=== PATIENT | female | born 1970 | race Caucasian/White ===

== ENCOUNTER 2018-12-20 14:20 | Inpatient (IN) | payer MEDICAID ==
[~2018-12-20] VITALS: Ht 162.6 cm; Wt 60.3 kg
[~2018-12-20 14:20] MED LIST: CLON0.5T12 PO; ESCI20TA PO
[2018-12-20] MEDS ORDERED: FLUO-191 PO (18:08)
[2018-12-20] MEDS ORDERED: TRAZ150 PO (18:08)
[2018-12-20] MEDS ORDERED: PRAZ1 PO (18:08)
[2018-12-20] MEDS ORDERED: MACR100 PO (18:15)
[2018-12-20] MEDS ORDERED: VIT1TABL82 PO (18:17)
[2018-12-20] MEDS ORDERED: THIA100T67 PO (18:17)
[2018-12-20] MEDS ORDERED: LORazepam 2 MG TABLET PO PRN (18:30)
[2018-12-20] MEDS ORDERED: HALOPERIDOL 5 MG TABLET PO PRN (18:30)
[2018-12-20] MEDS ORDERED: ZOLPIDEM TARTRATE 10 MG TABLET PO PRN (18:30)
[2018-12-20] MEDS ORDERED: PETROLATUM,WHITE 28 GM JELLY TP PRN (20:00)
[2018-12-20] MEDS ORDERED: LOPERAMIDE HCL 2 MG CAPSULE PO PRN (20:00)
[2018-12-20] MEDS ORDERED: ACETAMINOPHEN 325 MG TABLET PO PRN (20:00)
[2018-12-20] MEDS ORDERED: IBUPROFEN 400 MG TABLET PO PRN (20:00)
[2018-12-20] MEDS ORDERED: DOCUSATE SODIUM 100 MG CAPSULE PO PRN (20:00)
[2018-12-20] MEDS ORDERED: MAGNESIUM HYDROXIDE SUSPENSION 30 ML UDCUP PO PRN (20:00)
[2018-12-20 20:22] VITALS: BP 94/61
[2018-12-20 20:27] VITALS: BP 94/61
[2018-12-21 05:37] VITALS: BP 100/60
[2018-12-21 08:03] LABS: BASOPHILS % (AUTO) 0.8 % (0.0-2.0); EOSINOPHILS % (AUTO) 2.3 % (1.0-6.0); HEMATOCRIT 37.7 % (36-46); HEMOGLOBIN 11.8 g/dL (12.0-16.0); LYMPHOCYTES # (AUTO) 1.5 K/uL (1.0-4.8); LYMPHOCYTES % (AUTO) 40.6 % (22.0-44.0); MEAN CORPUSCULAR HEMOGLOBIN 24.9 pg (26.0-34.0); MEAN CORPUSCULAR HGB CONC 31.2 G/dL (31.0-37.0); MEAN CORPUSCULAR VOLUME 80 fL (80-100); MONOCYTES # (AUTO) 0.5 K/uL (0.1-1.0); NEUTROPHILS # (AUTO) 1.6 K/uL (1.8-7.7); NEUTROPHILS % (AUTO) 43.3 % (40.0-70.0); PLATELET COUNT (AUTO) 230 K/uL (150-450); RED BLOOD CELL COUNT(AUTO) 4.73 MIL/uL (4.00-5.20); RED CELL DISTRIBUTION WIDTH 16.2 % (11.5-14.5)
[2018-12-21 08:12] VITALS: BP 104/64
[2018-12-21 08:14] LABS: HEMOGLOBIN A1C 6.1 % (4.5-6.2)
[2018-12-21 08:35] LABS: ALANINE AMINOTRANSFERASE 21 U/L (12-78); ALBUMIN 3.5 g/dL (3.4-5.0); ALKALINE PHOSPHATASE 91 U/L (46-116); ANION GAP 14 mmol/L (8-16); ASPARTATE AMINOTRANSFERASE 24 U/L (15-37); BILIRUBIN,TOTAL 0.5 mg/dL (0.1-1.0); CALCIUM, TOTAL 8.9 mg/dL (8.8-10.5); CARBON DIOXIDE 24 mmol/L (22-29); CHLORIDE 99 mmol/L (98-107); CHOL/HDL RATIO 2.5 (3.9-5.7); CHOLESTEROL 166 mg/dL (131-200); CREATININE 0.78 mg/dL (0.60-1.30); FREE T4 (FREE THYROXINE) 1.27 ng/dL (0.76-1.46); GLOMERULAR FILTR. RATE CALC > 60 mL/min (>60); GLUCOSE,RANDOM 73 mg/dL (70-110); HDL CHOLESTEROL 66 mg/dL (40-60); LDL CHOL (CALC.) 83 mg/dL (0-130); SODIUM SERUM 137 mmol/L (136-145); THYROID STIMULATING HORMONE 1.59 uIU/mL (0.36-3.74); TOTAL PROTEIN, SERUM 7.5 g/dL (6.4-8.2); TRIGLYCERIDES 85 mg/dL (15-150); UREA NITROGEN, BLOOD 10 mg/dL (7-18)
[2018-12-21] MEDS ORDERED: POTASSIUM CHLORIDE 20 MEQ ER TABLET PO ONE (09:30)
[2018-12-21] MEDS: FLUoxetine HCL 20 MG CAPSULE PO SCH (12:28)
[2018-12-21] MEDS: MAG HYDROX/AL HYDROX/SIMETH ES 30 ML SUSPENSION UDCUP PO PRN (15:25)
[2018-12-21] MEDS: NITROFURANTOIN/NITROFURAN MAC 100 MG CAPSULE [MACROBID] PO SCH (16:04)
[2018-12-21 16:21] VITALS: BP 101/67
[2018-12-21] MEDS: TraZODone HCL 100 MG TABLET PO SCH (20:04)
[2018-12-21] MEDS: PRAZOSIN HCL 1 MG CAPSULE PO SCH (20:06)
[2018-12-22 06:33] VITALS: BP 100/60
[2018-12-22] MEDS: FLUoxetine HCL 20 MG CAPSULE PO SCH (08:03)
[2018-12-22] MEDS: NITROFURANTOIN/NITROFURAN MAC 100 MG CAPSULE [MACROBID] PO SCH ×2 (08:03→16:00)
[2018-12-22 08:58] VITALS: BP 88/49
[2018-12-22 11:05] VITALS: BP 100/60
[2018-12-22 16:15] VITALS: BP 101/62
[2018-12-22] MEDS: PRAZOSIN HCL 1 MG CAPSULE PO SCH (20:03)
[2018-12-22] MEDS: TraZODone HCL 100 MG TABLET PO SCH (20:03)
[2018-12-23 05:45] VITALS: BP 100/60
[2018-12-23 08:22] VITALS: BP 102/52
[2018-12-23] MEDS: FLUoxetine HCL 20 MG CAPSULE PO SCH (08:29)
[2018-12-23] MEDS: NITROFURANTOIN/NITROFURAN MAC 100 MG CAPSULE [MACROBID] PO SCH ×2 (08:29→17:13)
[2018-12-23] MEDS: MAG HYDROX/AL HYDROX/SIMETH ES 30 ML SUSPENSION UDCUP PO PRN (09:11)
[2018-12-23 16:06] VITALS: BP 100/65
[2018-12-23] MEDS: PRAZOSIN HCL 1 MG CAPSULE PO SCH (21:00)
[2018-12-23 21:35] VITALS: BP 96/56
[2018-12-23] MEDS: TraZODone HCL 100 MG TABLET PO SCH (21:35)
[2018-12-24 01:15] VITALS: BP 98/60
[2018-12-24] MEDS: NITROFURANTOIN/NITROFURAN MAC 100 MG CAPSULE [MACROBID] PO SCH ×2 (08:21→16:04)
[2018-12-24] MEDS: FLUoxetine HCL 20 MG CAPSULE PO SCH (08:21)
[2018-12-24 08:26] VITALS: BP 93/50
[2018-12-24] MEDS ORDERED: HYDROCORTISONE 1% 120 ML LOTION TP PRN (15:00)
[2018-12-24 16:01] VITALS: BP 110/66
[2018-12-24] MEDS: PRAZOSIN HCL 1 MG CAPSULE PO SCH (20:15)
[2018-12-24] MEDS: TraZODone HCL 100 MG TABLET PO SCH ×2 (20:16→21:00)
[2018-12-24] MEDS: LORazepam 0.5 MG TABLET PO PRN (22:02)
[2018-12-25 06:29] VITALS: BP 108/60
[2018-12-25] MEDS: NITROFURANTOIN/NITROFURAN MAC 100 MG CAPSULE [MACROBID] PO SCH (07:48)
[2018-12-25] MEDS: LORazepam 0.5 MG TABLET PO PRN (07:49)
[2018-12-25] MEDS: FLUoxetine HCL 20 MG CAPSULE PO SCH (07:49)
[2018-12-25 08:04] VITALS: BP 105/61
[2018-12-25 08:16] LABS: BASOPHILS % (AUTO) 0.6 % (0.0-2.0); EOSINOPHILS % (AUTO) 1.8 % (1.0-6.0); HEMATOCRIT 29.5 % (36-46); HEMOGLOBIN 9.5 g/dL (12.0-16.0); LYMPHOCYTES # (AUTO) 2.1 K/uL (1.0-4.8); MEAN CORPUSCULAR HEMOGLOBIN 25.4 pg (26.0-34.0); MEAN CORPUSCULAR HGB CONC 32.2 G/dL (31.0-37.0); MEAN CORPUSCULAR VOLUME 79 fL (80-100); MONOCYTES # (AUTO) 0.4 K/uL (0.1-1.0); MONOCYTES % (AUTO) 7.7 % (2.0-9.0); NEUTROPHILS # (AUTO) 2.3 K/uL (1.8-7.7); NEUTROPHILS % (AUTO) 46.9 % (40.0-70.0); PLATELET COUNT (AUTO) 165 K/uL (150-450); RED BLOOD CELL COUNT(AUTO) 3.74 MIL/uL (4.00-5.20); RED CELL DISTRIBUTION WIDTH 15.9 % (11.5-14.5)
[2018-12-25 16:12] VITALS: BP 95/60
[2018-12-25] MEDS: PRAZOSIN HCL 1 MG CAPSULE PO SCH (20:02)
[2018-12-25] MEDS: TraZODone HCL 100 MG TABLET PO SCH (20:04)
[2018-12-26 05:39] VITALS: BP 106/60
[2018-12-26] MEDS: FLUoxetine HCL 20 MG CAPSULE PO SCH (08:12)
[2018-12-26 08:23] VITALS: BP_SYST 102; BP_SYST 94; BP_DIAS 52; BP_DIAS 64
[2018-12-26 08:46] LABS: BASOPHILS % (AUTO) 0.5 % (0.0-2.0); EOSINOPHILS % (AUTO) 1.3 % (1.0-6.0); HEMATOCRIT 31.3 % (36-46); HEMOGLOBIN 9.9 g/dL (12.0-16.0); LYMPHOCYTES % (AUTO) 41.9 % (22.0-44.0); MEAN CORPUSCULAR HEMOGLOBIN 25.3 pg (26.0-34.0); MEAN CORPUSCULAR HGB CONC 31.6 G/dL (31.0-37.0); MEAN CORPUSCULAR VOLUME 80 fL (80-100); MONOCYTES # (AUTO) 0.4 K/uL (0.1-1.0); MONOCYTES % (AUTO) 8.2 % (2.0-9.0); NEUTROPHILS # (AUTO) 2.3 K/uL (1.8-7.7); NEUTROPHILS % (AUTO) 48.1 % (40.0-70.0); PLATELET COUNT (AUTO) 182 K/uL (150-450); RED BLOOD CELL COUNT(AUTO) 3.92 MIL/uL (4.00-5.20); RED CELL DISTRIBUTION WIDTH 16.3 % (11.5-14.5)
[2018-12-26] MEDS: LORazepam 0.5 MG TABLET PO PRN (14:11)
[2018-12-26 16:05] VITALS: BP 108/66
[2018-12-26] MEDS: FERROUS SULFATE 325 MG EC TABLET PO SCH (16:31)
[2018-12-26] MEDS: TraZODone HCL 100 MG TABLET PO SCH (20:06)
[2018-12-26] MEDS: PRAZOSIN HCL 1 MG CAPSULE PO SCH (20:11)
[2018-12-27] MEDS: FERROUS SULFATE 325 MG EC TABLET PO SCH (06:01)
[2018-12-27 06:17] VITALS: BP 108/67
[2018-12-27 08:24] LABS: APPEARANCE,URINE CLEAR (CLEAR); BILIRUBIN,URINE NEGATIVE (NEGATIVE); GLUCOSE, URINE (UA) NEGATIVE (NEGATIVE); KETONES,URINE NEGATIVE (NEGATIVE); LEUKOCYTE ESTERASE ,URINE NEGATIVE (NEGATIVE); NITRATE,URINE NEGATIVE (NEGATIVE); OCCULT BLOOD,URINE NEGATIVE (NEGATIVE); PH,URINE 6.5 (5.0-8.0); PROTEIN,URINE NEGATIVE (NEGATIVE); UROBILINOGEN,URINE 0.2 mg/dL (<=1.0)
[2018-12-27] MEDS: FLUoxetine HCL 20 MG CAPSULE PO SCH (08:31)
[2018-12-27] MEDS ORDERED: FERR-89 PO (10:22)
[2018-12-27 12:20] VITALS: BP 105/65
== END 2018-12-27 13:30 | disposition home or self-care (01) | DRG 751 ==
LOC: B2S 16:30
PROVIDERS: ADMIT Psychiatry & Neurology Psychiatry; ATTEND Psychiatry & Neurology Psychiatry
DX: F33.2 Major depressive disorder, recurrent severe without psychotic features (principal); R45.851 Suicidal ideations; F41.9 Anxiety disorder, unspecified; R41.843 Psychomotor deficit; F43.10 Post-traumatic stress disorder, unspecified; F10.10 Alcohol abuse, uncomplicated; R45.87 Impulsiveness; E87.6 Hypokalemia; D64.9 Anemia, unspecified; D72.819 Decreased white blood cell count, unspecified; Z71.41 Alcohol abuse counseling and surveillance of alcoholic; Y90.9 Presence of alcohol in blood, level not specified; Z71.51 Drug abuse counseling and surveillance of drug abuser; Z87.440 Personal history of urinary (tract) infections; Z91.5 Personal history of self-harm; Z59.0 Homelessness
CPT/HCPCS: 83036; 84132; 84439; 84443